=== PATIENT | female | born 1960 | race Caucasian/White ===

== ENCOUNTER 2017-12-06 06:30 | Day surgery (SDC) | payer OTHER ==
[2017-12-03 13:04] LABS: ABSOLUTE EOSINOPHILS # (AUTO) 0.2 10^3/uL (0.0-0.6); ABSOLUTE LYMPHOCYTES (AUTO) 1.7 10^3/uL (0.5-4.7); ABSOLUTE MONOCYTES (AUTO) 0.4 10^3/uL (0.1-1.4); ABSOLUTE NEUT (AUTO) 4.1 10^3/uL (1.7-8.2); BASOPHILS % (AUTO) 0.3 % (0-2); EOSINOPHILS % (AUTO) 2.6 % (0-6); HEMATOCRIT 37.9 % (36.0-47.0); HEMOGLOBIN 12.9 g/dL (12.0-15.5); LYMPHOCYTES % (AUTO) 26.9 % (13-45); MEAN CORPUSCULAR HEMOGLOBIN 31.4 pg (27.0-33.4); MEAN CORPUSCULAR HGB CONC 34.1 g/dL (32.0-36.0); MEAN CORPUSCULAR VOLUME 92 fl (80-97); PLATELET COUNT 242 10^3/uL (150-450); RED BLOOD COUNT 4.12 10^6/uL (3.72-5.28); RED CELL DISTRIBUTION WIDTH 13.5 % (11.5-14.0); SEGMENTED NEUTROPHILS % (AUTO) 64.2 % (42-78); TOTAL CELLS COUNTED % (AUTO) 100 %; WHITE BLOOD COUNT 6.3 10^3/uL (4.0-10.5)
[2017-12-03 13:32] LABS: ANION GAP 8 (5-19); BLOOD UREA NITROGEN 17 mg/dL (7-20); CALCIUM 9.9 mg/dL (8.4-10.2); CARBON DIOXIDE 31 mmol/L (22-30); CHLORIDE 103 mmol/L (98-107); GLUCOSE 82 mg/dL (75-110); POTASSIUM 4.4 mmol/L (3.6-5.0); SODIUM 141.7 mmol/L (137-145)
--- NOTE | 2017-12-03 22:38 | EKG REPORT ---
SEVERITY:- NORMAL ECG - SINUS RHYTHM : Confirmed by: Luiz Huynh 03-Dec-2017 22:37:10
[~2017-12-06 06:30] MED LIST: LACTATED RINGERS 1000 ML IV PRN; LIDOCAINE 0.5% INJ-PF (5 MG/ML) 50 ML SDV SUBCUT PRN; SCOPOLAMINE HYDROBROMIDE 1.5 MG PATCH.TD72 TD PRN
[2017-12-06] MEDS ORDERED: LIDOCAINE 2%/EPINEPHRINE INJ 1.7 ML CARTRIDGE ONE (09:18)
[2017-12-06] MEDS ORDERED: LIDOCAINE 2% INJ-PF (20 MG/ML) 10 ML AMPUL ONE (09:20)
[2017-12-06] MEDS ORDERED: FENTANYL CITRATE INJ/PF 100 MCG/2 ML AMPUL ONE (09:20)
[2017-12-06] MEDS ORDERED: PROPRANOLOL HCL INJ/PF 1 MG/1 ML SDV IV ONE (09:20)
[2017-12-06] MEDS ORDERED: ONDANSETRON HCL INJ/PF 4 MG/2 ML SDV ONE (09:21)
[2017-12-06] MEDS ORDERED: DEXAMETHASONE SOD PHOSPHATE INJ 4 MG/1 ML VIAL ONE (09:21)
[2017-12-06] MEDS ORDERED: MIDAZOLAM 2 MG/2 ML INJ ONE (09:21)
[2017-12-06] MEDS ORDERED: ACETAMINOPHEN 100 ML IV ONE (09:21)
[2017-12-06] MEDS ORDERED: PROPOFOL INJ 200 MG/20 ML VIAL IV ONE (09:22)
[2017-12-06] MEDS ORDERED: CEFAZOLIN INJ 1 GM VIAL ONE (09:53)
[2017-12-06] MEDS ORDERED: PROMETHAZINE HCL INJ 25 MG/1 ML VIAL IV PRN ×3 (11:19→14:35)
[2017-12-06] MEDS ORDERED: MORPHINE SULFATE 10 MG/ML INJ IV PRN (11:19)
[2017-12-06] MEDS ORDERED: DIPHENHYDRAMINE HCL 50 MG/ML VIAL IV PRN (11:19)
[2017-12-06] MEDS ORDERED: OXYCODONE-ACETAMINOPHEN 5-325 MG TABLET PO PRN ×2 (11:19)
[2017-12-06] MEDS ORDERED: FENTANYL CITRATE INJ/PF 100 MCG/2 ML AMPUL IV PRN ×3 (11:19)
[2017-12-06] MEDS ORDERED: MEPERIDINE HCL/PF INJ 25 MG/1 ML DISP.SYRIN IV PRN (11:19)
[2017-12-06] MEDS ORDERED: RINGERS SOLUTION,LACTATED 1,000 ML IV PRN (14:35)
[2017-12-06] MEDS ORDERED: HYDROCODONE/ACETAMINOPHEN 5-325 MG TABLET PO PRN (14:36)
[2017-12-06] MEDS ORDERED: ONDANSETRON 4 MG TAB.RAPDIS PO PRN (14:36)
[2017-12-06] MEDS: ONDANSETRON HCL INJ/PF 4 MG/2 ML SDV IV PRN (15:15)
[2017-12-07] MEDS: ONDANSETRON HCL INJ/PF 4 MG/2 ML SDV IV PRN ×2 (00:14→10:17)
[2017-12-07] MEDS: HYDROCOD/ACETAMIN 7.5-325 MG/15 ML ORAL SOLN UDCUP PO PRN ×3 (00:14→10:17)
[2017-12-07 13:42] VITALS: BP 114/55
--- NOTE | 2017-12-09 10:00 | OPERATIVE REPORT E ---
Operative Report NAME: MARTIN WASSERMAN : 1960 AGE: 57Y DATE OF SURGERY: 12/06/2017 ROOM: 228 PREOPERATIVE DIAGNOSIS: Multinodular goiter. POSTOPERATIVE DIAGNOSIS: Multinodular goiter. OPERATION: 1. Right thyroid lobectomy with partial isthmusectomy. 2. Intraoperative NIM recurrent laryngeal nerve monitoring. SURGEON: SHAHNAZ CHRIS D.O. ANESTHESIA: General endotracheal tube. ANESTHESIA STAFF: LUIS Saleh. ESTIMATED BLOOD LOSS: 20 mL. FLUIDS: 1700 mL. COMPLICATIONS: None. DRAINS: None. COUNTS: Sponge count verified. Needle count verified. MATERIALS FORWARDED SPECIMEN: Right thyroid lobe with markings suggestive of the superior pole. FINDINGS: 1. Right thyroid lobe with large inferior nodule greater than 4x4 cm. 2. Right superior pole thyroid nodule less than 1x1 cm. 3. Right recurrent laryngeal nerve was identified and preserved with appropriate stimulation noted intraoperatively on the NIM monitor. 4. Right superior parathyroid gland prospect identified and preserved. 5. The inferior parathyroid gland prospect was not clearly visualized and there was no lymphadenopathy noted. INDICATIONS: This is a 57-year-old white female patient who was seen and evaluated in the [facility] office. The patient had been referred for and she voiced concern regarding her multinodular goiter. The patient was with a right inferior thyroid lobe nodule greater than 3 cm in size and a right superior thyroid nodule less than 1 cm in size that on FNAB was classified as a Wheeling category IV nodule. The patient has also experienced compressive symptoms with regard to the enlarged right thyroid nodule. The left lobe is only with colloid cyst changes noted on ultrasound. After extensive discussion with the patient, she only desired to have the right thyroid lobe addressed. Therefore, a right thyroid lobectomy with partial isthmusectomy was discussed with the patient. She was aware that depending on the final pathology results, she may need to return to the main operating room within 1-2 weeks of the primary surgery to have a completion thyroid surgery performed. The procedures and all of their risks and complications were all discussed in detail with the patient. She voices understanding of the described surgical plan, agrees to proceed, and consent was obtained. PROCEDURE: The patient was taken to the main operating room and placed on the operating room table in the supine position. Appropriate monitors were placed. Using mask and IV access, general anesthesia was induced. The patient was next transorally intubated with the NIM monitoring tube. The NIM monitoring system tested adequately before beginning the case. The patient had an incision site marked of the anterior neck with a surgical marking pen, and then this area was then infiltrated with lidocaine with epinephrine or a local anesthetic. The patient was then prepped and draped in a sterile fashion for thyroid surgery. The patient underwent an incision through the previously marked site down through the subcutaneous tissues and platysma. Flaps were elevated in a subplatysmal plane. Strap muscles were divided in the midline and the right thyroid lobe was clearly identified. The right thyroid lobe was mobilized. Hemostasis was provided with bipolar electrocautery. The superior and inferior thyroid pole vessels were isolated and divided/addressed with the Harmonic handpiece. In the process of mobilizing the right thyroid lobe, the strap muscles were divided to allow for delivery of the lobe with enlarged nodule. Strap muscles were divided at the mid thyroid aspect. The recurrent laryngeal nerve on the right was identified as was the right superior parathyroid gland prospect. These structures were preserved. Findings are as noted above. The nodule was released from the area of Sagastume's ligament and brought on to the anterior tracheal wall. The thyroid isthmus was identified. The thyroid nodule had expanded into the area of the isthmus. The Harmonic handpiece was used to divide the isthmus and the right thyroid lobe was passed off for permanent pathology evaluation with a marking suture placed at the superior pole. At this point, the surgical site was thoroughly irrigated with normal saline and suction. Bipolar electrocautery was used to provide adequate hemostasis. At this point, one piece of Surgicel was placed over the area of the parathyroid gland prospect and recurrent laryngeal nerve. Adequate hemostasis was noted. The strap muscles were re-approximated with Vicryl suture where they had been divided laterally. The strap muscles were also re-approximated in the midline with Vicryl suture. The platysma and subcutaneous tissues were re-approximated with Vicryl suture. At this point, Monocryl suture was used to re-approximate the deep subcutaneous and deep dermal tissue layers. The skin margins were re-approximated with a Monocryl continuous running suture placed in the dermal layer. At this point, the patient's skin was cleaned and dried followed by placement of Mastisol and Steri-Strips. The patient was then returned to the Anesthesia staff and was allowed to emerge from general anesthesia. The patient was extubated in the main operating room and was then transported into the postanesthesia recovery unit in stable condition. There were no complications. DICTATING PHYSICIAN: SHAHNAZ CHRIS D.O. [id number] PHY#: [id number] ID: [id number] JOB#: [id number] ACCT: [id number] cc:SHAHNAZ CHRIS D.O. >
== END 2017-12-07 13:50 | disposition home or self-care (01) ==
LOC: OROUT 06:30 → 2S 18:50 → OROUT 12-07 13:50
PROVIDERS: ATTEND Otolaryngology
PROC: 0GBG0ZZ Excision of Left Thyroid Gland Lobe, Open Approach (ICD-10-PCS; 2017-12-06)
PROC: 0GBJ0ZZ Excision of Thyroid Gland Isthmus, Open Approach (ICD-10-PCS; 2017-12-06)
PROC: 0GTH0ZZ Resection of Right Thyroid Gland Lobe, Open Approach (ICD-10-PCS; principal; 2017-12-06 08:30)
DX: E04.2 Nontoxic multinodular goiter (principal); Z79.899 Other long term (current) drug therapy
CPT/HCPCS: 93005; 36415; 85025; 80048; 88307 ×2; 93010; 60225; J2250; J3490 ×2; J0690; J1100; J3010; J2550; J2405 ×2; J2704; J0131; 320; J1800; S0119

== ENCOUNTER → 2017-12-18 | Outpatient (CLI) | payer OTHER ==
--- NOTE | 2017-12-18 16:55 | RADIOLOGY REPORT (SQ) ---
EXAM DESCRIPTION: U/S THYROID/SFT TISS HD NECK COMPLETED DATE/TIME: 12/18/2017 4:38 pm REASON FOR STUDY: E04.2 NONTOXIC MULTINODULAR GOITER E04.2 NONTOXIC MULTINODULAR GOITER COMPARISON: None. TECHNIQUE: Dynamic and static rowan-scale images acquired of the thyroid gland. Selected additional c olor/power Doppler images recorded. All images stored to PACS. Patient was scanned by both myself as well as the technologist. LIMITATIONS: None. FINDINGS: Patient is post right lobe thyroidectomy. In the right lobe thyroidectomy bed extending i nto the midline, deep to the strap muscles, there is a small septated fluid collection measuring 2 cm craniocaudad x 1.4 cm transverse x 0.8 cm AP. No internal color flow. The left lobe thyroid measures 3.5 x 1.7 x 1.5 cm in size with multiple small colloid cysts. No subcutaneous fluid collection is identified. IMPRESSION: Post right lobe thyroidectomy with small septated fluid collection in the surgical bed m easuring 2 x 1.4 x 0.8 cm in size TECHNICAL DOCUMENTATION: JOB ID: [id number] [id number]- All Rights Reserved Reading location - IP/workstation name: [email or web address]
== END ==
LOC: RAD 15:45
PROVIDERS: ATTEND Otolaryngology
DX: E04.2 Nontoxic multinodular goiter (principal)
CPT/HCPCS: 76536

== ENCOUNTER 2018-06-04 06:19 | Observation (INO) | payer OTHER ==
[2018-06-02 12:50] LABS: HEMATOCRIT 36.7 % (36.0-47.0); HEMOGLOBIN 12.5 g/dL (12.0-15.5); MEAN CORPUSCULAR HEMOGLOBIN 31.6 pg (27.0-33.4); MEAN CORPUSCULAR HGB CONC 34.2 g/dL (32.0-36.0); MEAN CORPUSCULAR VOLUME 93 fl (80-97); PLATELET COUNT 244 10^3/uL (150-450); RED BLOOD COUNT 3.97 10^6/uL (3.72-5.28); RED CELL DISTRIBUTION WIDTH 13.8 % (11.5-14.0); WHITE BLOOD COUNT 6.5 10^3/uL (4.0-10.5)
[2018-06-02 13:17] LABS: ANION GAP 8 (5-19); BLOOD UREA NITROGEN 14 mg/dL (7-20); CALCIUM 9.6 mg/dL (8.4-10.2); CARBON DIOXIDE 31 mmol/L (22-30); CHLORIDE 102 mmol/L (98-107); GLUCOSE 73 mg/dL (75-110); POTASSIUM 4.3 mmol/L (3.6-5.0); SODIUM 140.8 mmol/L (137-145)
--- NOTE | 2018-06-02 16:01 | EKG REPORT ---
SEVERITY:- BORDERLINE ECG - SINUS RHYTHM LVH BY VOLTAGE : Confirmed by: Luiz Huynh 02-Jun-2018 15:59:53
[~2018-06-04 06:19] MED LIST changes: +SCOPOLAMINE HYDROBROMIDE 1.5 MG PATCH.TD72 ONE
[2018-06-04] MEDS ORDERED: LIDOCAINE 2%/EPINEPHRINE INJ 1.7 ML CARTRIDGE ONE (07:16)
[2018-06-04] MEDS ORDERED: LIDOCAINE 2% INJ-PF (20 MG/ML) 10 ML AMPUL ONE (07:22)
[2018-06-04] MEDS ORDERED: FENTANYL CITRATE INJ/PF 100 MCG/2 ML AMPUL ONE (07:22)
[2018-06-04] MEDS ORDERED: MIDAZOLAM 2 MG/2 ML INJ ONE (07:22)
[2018-06-04] MEDS ORDERED: PROMETHAZINE HCL INJ 25 MG/1 ML VIAL ONE (07:22)
[2018-06-04] MEDS ORDERED: PROPOFOL INJ 200 MG/20 ML VIAL IV ONE (07:23)
[2018-06-04] MEDS ORDERED: HYDROMORPHONE HCL INJ/PF 2 MG/ML AMPULE ONE (07:23)
[2018-06-04] MEDS ORDERED: ACETAMINOPHEN 1,000 MG/100 ML RTUPB IV ONE (07:23)
[2018-06-04] MEDS ORDERED: ONDANSETRON HCL INJ/PF 4 MG/2 ML SDV ONE ×2 (07:42→13:56)
[2018-06-04] MEDS ORDERED: CEFAZOLIN INJ 1 GM VIAL ONE (09:26)
[2018-06-04] MEDS ORDERED: FENTANYL CITRATE INJ/PF 100 MCG/2 ML AMPUL IV PRN ×3 (10:11)
[2018-06-04] MEDS ORDERED: MEPERIDINE HCL/PF INJ 25 MG/1 ML DISP.SYRIN IV PRN (10:11)
[2018-06-04] MEDS ORDERED: MORPHINE SULFATE 10 MG/ML INJ IV PRN ×2 (10:11→12:54)
[2018-06-04] MEDS ORDERED: PROMETHAZINE HCL INJ 25 MG/1 ML VIAL IV PRN ×3 (10:11→12:54)
[2018-06-04] MEDS ORDERED: DIPHENHYDRAMINE HCL 50 MG/ML VIAL IV PRN (10:11)
[2018-06-04] MEDS ORDERED: DEXAMETHASONE SOD PHOSPHATE INJ 4 MG/1 ML VIAL ONE (13:56)
[2018-06-04] MEDS ORDERED: SUCCINYLCHOLINE CHLORIDE INJ 200 MG/10 ML VIAL ONE (13:56)
[2018-06-04] MEDS ORDERED: ROCURONIUM BROMIDE INJ 50 MG/5 ML VIAL IV ONE (13:56)
[2018-06-04] MEDS: ONDANSETRON HCL INJ/PF 4 MG/2 ML SDV IV PRN (14:24)
[2018-06-04] MEDS: HYDROCODONE/ACETAMINOPHEN 5-325 MG TABLET PO PRN ×2 (17:25→22:04)
[2018-06-04 17:39] LABS: ALBUMIN 3.9 g/dL (3.5-5.0); CALCIUM 9.3 mg/dL (8.4-10.2); PHOSPHORUS 4.4 mg/dL (2.5-4.5)
[2018-06-04] MEDS: RINGERS SOLUTION,LACTATED 1,000 ML IV PRN (20:06)
[2018-06-05] MEDS: RINGERS SOLUTION,LACTATED 1,000 ML IV PRN ×2 (04:30→13:00)
[2018-06-05] MEDS ORDERED: LEVOTHYROXINE SODIUM 0.05 MG TABLET PO SCH (06:00)
[2018-06-05] MEDS ORDERED: PROMETHAZINE HCL INJ 25 MG/1 ML VIAL IV PRN (07:30)
[2018-06-05 07:57] LABS: ALBUMIN 3.3 g/dL (3.5-5.0); CALCIUM 9.1 mg/dL (8.4-10.2); PHOSPHORUS 4.2 mg/dL (2.5-4.5)
[2018-06-05] MEDS: HYDROCODONE/ACETAMINOPHEN 5-325 MG TABLET PO PRN (08:10)
[2018-06-05] MEDS: ONDANSETRON HCL INJ/PF 4 MG/2 ML SDV IV PRN (08:10)
--- NOTE | 2018-06-05 08:21 | OPERATIVE REPORT E ---
Operative Report NAME: MARTIN WASSERMAN : 1960 AGE: 57Y DATE OF SURGERY: 06/04/2018 ROOM: 532 PREOPERATIVE DIAGNOSES: 1. History of papillary thyroid cancer. 2. Left thyroid lobe with multiple nodules. POSTOPERATIVE DIAGNOSES: 1. History of papillary thyroid cancer. 2. Left thyroid lobe with multiple nodules. OPERATIONS PERFORMED: 1. Completion left thyroid lobectomy with remaining isthmusectomy. 2. Noninvasive nerve monitoring intraoperatively (NIM). PRIMARY SURGEON: SHAHNAZ CHRIS D.O. ASSISTING SURGEON: EMILY NICHOLAS M.D. ANESTHESIA: General endotracheal tube. ANESTHESIA STAFF: Miriam CALDERON ESTIMATED BLOOD LOSS: 20 mL. FLUIDS: 1200 mL. URINE OUTPUT: 300 mL. COMPLICATIONS: None. DRAINS: None. COUNTS: Sponge count verified. Needle count verified. MATERIALS FORWARDED SPECIMEN: Left thyroid lobe with multiple nodules palpated with remaining thyroid isthmus tissue for permanent pathology evaluation. FINDINGS: 1. Left thyroid lobe with multiple nodules palpated and remaining isthmus tissue overlying the anterior tracheal aspect. 2. Extensive scar tissue throughout the thyroid distribution and surrounding the trachea and strap muscles. 3. Left recurrent laryngeal nerve was identified and preserved and stimulated appropriately at 1 and 1.5 milliamp during and at the end of the case. 4. Left parathyroid gland prospect was identified and preserved. INDICATIONS: This is a 57-year-old white female who has been seen, evaluated, and followed in the [facility] office. The patient is with history of a multinodular goiter with most dominant nodule originally on the right greater than 3 cm. The patient underwent a right thyroid lobectomy. On final pathology, the patient was noted through an extensive pathology investigation to have a papillary thyroid carcinoma size of 11 mm. The patient followed up with both ENT and Endocrinology with repeat thyroid ultrasound and FNA of the most dominant left thyroid nodule at 6.6 mm. This came back Clarendon category II. After extensive discussion with the patient, recommendation and plan was to proceed with a completion left thyroid lobectomy and isthmusectomy, which the patient voiced an understanding of and desires to proceed with. The procedure and all of the risks and complications were all discussed in detail with the patient. She voiced an understanding of the described surgical plan, agreed to proceed, and consent was obtained. DESCRIPTION OF PROCEDURE: The patient was taken to the main operating room and placed on the operating room table in the supine position. Appropriate monitors placed. Using mask and IV access, general anesthesia was induced. The patient was next transorally intubated with an NIM endotracheal tube. The NIM monitoring system was set up and attested appropriately before beginning the case. At this point, there was a planned incision site marked at the anterior neck followed by infiltration with local anesthetic with epinephrine. The patient was then prepped and draped in the usual fashion for thyroid surgery. The skin was sharply incised down to the level of the subcutaneous and platysmal tissues. Skin flaps were elevated in a subplatysmal plane. The extensive scar tissue and strap muscle distribution was identified and divided in the midline. Careful dissection was carried out to identify the anterior tracheal wall and remaining thyroid isthmus tissue and left thyroid lobe. The left strap muscles were mobilized laterally to expose the left thyroid lobe. The left lobe was mobilized and prominent vasculature was divided using the Harmonic handpiece. Bipolar electrocautery was utilized throughout the case. The lobe and remaining isthmus tissue was mobilized and Sagastume's ligament was released and the specimen was removed. There was also remaining isthmus tissue and scar tissue that was removed that was overlying the anterior tracheal wall. At this point, the wound bed was thoroughly irrigated. There was a parathyroid gland prospect and the left recurrent laryngeal nerve were identified and preserved during the case. The left recurrent laryngeal nerve stimulated appropriately at 1.5 and 1 milliamp during and at the end of the case. Bipolar electrocautery was used to provide adequate hemostasis. There were 2 pieces of Surgicel, approximately 2 x 2 cm each, that were placed into the wound bed overlying the area of the parathyroid gland and recurrent laryngeal nerve. At this point, the strap muscles were reapproximated in the midline using Vicryl suture. Deeper subcutaneous and platysmal layers were reapproximated with Vicryl suture. Next, the deep dermal tissue was reapproximated with 5-0 Monocryl suture. A final skin layer of reapproximation was performed using a Monocryl deep dermal continuous suture. The skin was then cleaned and dried followed by placement of Mastisol, Steri-Strips, and a Fluffs pressure dressing. The patient was next returned to the anesthesia staff and was allowed to emerge from general anesthesia. The patient was extubated in the main operating room and was then transported to the post-anesthesia recovery unit in stable condition. There were no complications. DICTATING PHYSICIAN: SHAHNAZ CHRIS D.O. [id number] PHY#: [id number] ID: [id number] JOB#: [id number] ACCT: [id number] cc:SHAHNAZ CHRIS D.O. > MTDD
[2018-06-05] MEDS ORDERED: HYDROCODONE/ACETAMINOPHEN 5-325 MG TABLET PO PRN (08:35)
[2018-06-05] MEDS ORDERED: VITAMIN E (DL, ACETATE) 400 UNIT CAPSULE PO SCH (10:00)
[2018-06-05] MEDS ORDERED: (PENDING PHARMACY ID) (Omega-3 Fatty Acids/Fish Oil [Fish Oil 1,000 Mg Capsule] 1 EACH) PO SCH (10:00)
[2018-06-05] MEDS ORDERED: IRON CARBONYL PO SCH (10:00)
[2018-06-05] MEDS ORDERED: (PENDING PHARMACY ID) (Vitamin E [Vitamin E] 1,000 UNIT) PO SCH (10:00)
[2018-06-05] MEDS ORDERED: SELENIUM PO SCH (10:00)
[2018-06-05] MEDS ORDERED: ZINC 15 MG PO SCH (10:00)
[2018-06-05] MEDS ORDERED: ASCORBIC ACID PO SCH (10:00)
[2018-06-05] MEDS ORDERED: MULTIVITAMIN TABLET PO SCH (10:00)
[2018-06-05] MEDS: OMEGA-3 ACID ETHYL ESTERS 1 GM CAPSULE PO SCH ×2 (10:15→10:35)
[2018-06-05 12:27] VITALS: BP 89/56
[2018-06-05] MEDS ORDERED: ONDANSETRON HCL INJ/PF 4 MG/2 ML SDV IV PRN (14:30)
== END 2018-06-05 15:32 | disposition home or self-care (01) ==
LOC: OROUT 06:19 → EDSTATUS 08:30 → 5 12:54 → OROUT 16:06
PROVIDERS: ADMIT Otolaryngology; ATTEND Otolaryngology
PROC: 0GTG0ZZ Resection of Left Thyroid Gland Lobe, Open Approach (ICD-10-PCS; 2018-06-04)
PROC: 0GTJ0ZZ Resection of Thyroid Gland Isthmus, Open Approach (ICD-10-PCS; principal; 2018-06-04 08:30)
DX: E04.2 Nontoxic multinodular goiter (principal); Z85.850 Personal history of malignant neoplasm of thyroid; Z98.890 Other specified postprocedural states; Z79.899 Other long term (current) drug therapy
CPT/HCPCS: 60220; 93005; 36415 ×3; 82040 ×2; 82310 ×2; 83735 ×2; 84100 ×2; 85027; 80048; 83970; 88305 ×2; 88307 ×2; 88331 ×2; 93010; J2250; J3490 ×3; J0690; J1100; J1170; J2550; J0330; J2405 ×2; J7120; J2704; J0131; 320; J3010

== ENCOUNTER → 2020-08-19 | Outpatient (CLI) | payer OTHER ==
[2020-08-19 11:19] VITALS: BP 132/80
--- NOTE | 2020-08-19 11:19 | ER RDC ASSESSMENT REPORT ---
Intake - In the Last 14 days Have you traveled outside [place]?: No Have you been in close contact with someone CONFIRMED: Yes Worked in Healthcare?: No - Symptoms Subjective Fever([place] feverish): No Chills: No Muscule Aches: No Runny Nose: No Sore Throat: No Cough (New or worsening chronic cough): No Shortness of breath: No Nausea or Vomiting: No Headache: No Abdominal Pain: No Diarrhea(3 or more loose stools in last 24 hours): No - Do you have any of the following Chronic lung disease: Asthma or emphysema or COPD: No Cystic Fibrosis: No Diabetes: No High Blood Pressure: No Cardiovascular Disease: No Chronic Kidney Disease: No Chronic Liver Disease: No Chronic blood disorder like Sickle Cell Disease: No Weak immune system due to disease or medication: No Neurologic condition that limits movement: No Developmental delay - Moderate to Severe: No Recent (within past 2 weeks) or current : No Morbid Obesity (>100 pounds over ideal weight): No Obesity Comment: Height 5 feet 6 inches weight 190 pounds Other Comment: Is a history of thyroid cancer thyroid was removed. - Objective Temperature: 98.2 F Pulse Rate: 65 Respiratory Rate: 18 Blood Pressure: 132/80 O2 Sat by Pulse Oximetry: 98 Objective: Given above, testing performed: If Testing Performed: Test Specimen Type Sent to General - General Information source: Patient Notes: Patient here at [facility] for Covid testing patient reports [id number] was seen in the ER and has been tested for Covid and has tested positive patient has had exposure to her [id number] patient denies any symptoms at this point. Patient's PCP is Dr. Richardson at [facility]. Patient will follow up with him later. - Related Data Allergies/Adverse Reactions: No Known Allergies Allergy (Verified 06/04/18 06:41) Past Medical History - General Information source: Patient - Social History Smoking Status: Never Smoker - Past Medical History Cardiac Medical History: Denies: Hx Atrial Fibrillation, Hx Congestive Heart Failure, Hx Coronary Artery Disease, Hx Heart Attack, Hx Hypercholesterolemia, Hx Hypertension, Hx Peripheral Vascular Disease, Hx Heart Murmur Pulmonary Medical History: Denies: Hx Asthma, Hx Bronchitis, Hx COPD, Hx Pneumonia Neurological Medical History: Denies: Hx Cerebrovascular Accident, Hx Seizures Endocrine Medical History: Reports: Hx Hypothyroidism - D/T RIGHT THYROID LOBECTOMY. Denies: Hx Graves' Disease, Hx Hyperthyroidism Musculoskeletal Medical History: Reports Hx Arthritis - SPINAL STENONSIS, Denies Hx Fibromyalgia, Denies Hx Muscular Dystrophy, Denies Hx Systemic Lupus Erythematosus Traumatic Medical History: Denies: Hx Fractures Past Surgical History: Reports: Hx Hysterectomy. Denies: Hx Appendectomy, Hx Bowel Surgery, Hx Section, Hx Cholecystectomy, Hx Coronary Artery Bypass Graft, Hx Gastric Bypass Surgery, Hx Herniorrhaphy, Hx Mastectomy, Hx Pacemaker, Hx Tonsillectomy, Hx Tubal Ligation Physical Exam - General General appearance: Appears well, Alert In distress: None Notes: PHYSICAL EXAMINATION: GENERAL: Well-appearing and in no acute distress. HEAD: Atraumatic, normocephalic. EYES: sclera anicteric, conjunctiva are normal. ENT: nares patent. Moist mucous membranes. NECK: Normal range of motion, supple without lymphadenopathy LUNGS: CTAB and equal. No wheezes rales or rhonchi. Respirations even and unlabored lung sounds clear. HEART: Regular rate and rhythm without murmurs ABDOMEN: Soft, nontender, normal bowel sounds, no guarding. EXTREMITIES: Normal range of motion, no pitting edema. No cyanosis. NEUROLOGICAL: Cranial nerves grossly intact. Normal speech. Normal gait. PSYCH: Normal mood, normal affect. SKIN: Warm, Dry, normal turgor, no rashes or lesions noted Diagnostic Results Laboratory Results: pending Covid testing results. Patient provided instructions regarding Covid to include: As a person under investigation for Covid 19, the [place] department of Health and Human Services, division of public health advises you to adhere to the following guidance until your test results are reported to you. If your test result is positive, you will receive additional information from your provider and your local health department at that time. Remain at home until you are cleared by the health provider or public health authorities. Keep a log of visitors to your home, notify any visitors to your home of your isolation status. If you plan to move to a new address or leave the county, notify the local health department in your County. Call your doctor or seek care if you have an urgent medical need. Before seeking medical care, call ahead to get instructions from the provider before arriving at the medical office clinic or hospital. Notify them that you are being tested for the virus that causes Covid 19 so that arrangements can be made, as necessary, to prevent transmission to others in the healthcare setting. Next, notify the local health department in your county. If a medical emergency arises and you need to call 911, inform the first responders that you are being tested for the virus that causes Covid 19. Next, notify the local health department in your county. Patient Education/Counseling Counseling/Education: Patient presents with upper respiratory symptoms worrisome for possible Covid 19. Patient does not have emergency worring symptoms such as difficulty breathing, shortness of breath, chest pain, pressure, confusion or cyanosis. Patient appears suitable for discharge. Patient instructed to follow-up with RABIA Richardson at [facility] patient's vital signs are stable and patient is nontoxic in appearance. Good return precautions have been discussed with patient, patient verbalized understanding and is agreeable with discharge plan of care at this time. RDC Discharge - Discharge Clinical Impression: Encounter for screening laboratory testing for COVID-19 virus in asymptomatic patient Condition: Stable Disposition: Home; Selfcare
== END ==
LOC: RDC 10:27
PROVIDERS: ATTEND Nurse Practitioner Family
DX: Z20.828 Contact with and (suspected) exposure to other viral communicable diseases (principal); Z85.850 Personal history of malignant neoplasm of thyroid; E03.9 Hypothyroidism, unspecified; M48.00 Spinal stenosis, site unspecified; M13.80 Other specified arthritis, unspecified site
CPT/HCPCS: 87635; C9803; 99201; 99211

== ENCOUNTER → 2020-08-24 | Outpatient (CLI) | payer OTHER ==
--- NOTE | 2020-08-24 15:03 | ER RDC ASSESSMENT REPORT ---
Intake - In the Last 14 days Have you traveled outside [place]?: No Have you been in close contact with someone CONFIRMED: Yes Worked in Healthcare?: No - Symptoms Subjective Fever([place] feverish): No Chills: No Muscule Aches: No Runny Nose: No Sore Throat: No Cough (New or worsening chronic cough): No Shortness of breath: No Nausea or Vomiting: No Headache: No Abdominal Pain: No Diarrhea(3 or more loose stools in last 24 hours): No - Do you have any of the following Chronic lung disease: Asthma or emphysema or COPD: Yes Cystic Fibrosis: No Diabetes: No High Blood Pressure: No Cardiovascular Disease: No Chronic Kidney Disease: No Chronic Liver Disease: No Chronic blood disorder like Sickle Cell Disease: No Weak immune system due to disease or medication: No Neurologic condition that limits movement: No Developmental delay - Moderate to Severe: No Morbid Obesity (>100 pounds over ideal weight): No - Objective Temperature: 98.0 F Pulse Rate: 59 Respiratory Rate: 17 Blood Pressure: 114/56 O2 Sat by Pulse Oximetry: 100 Objective: Given above, testing performed: covid Disposition: Home; Selfcare General - General Stated Complaint: Asymptomatic, Covid screen Time Seen by Provider: 08/24/20 14:45 Mode of Arrival: Ambulatory Information source: Patient - HPI Notes: Patient presents to clinic for COVID-19 testing after coming in close contact with another COVID 19 positive individual. Patient is asymptomatic. They deny any cough, shortness of breath, fever, chills, muscle aches, rhinorrhea, sore throat, nausea or vomiting, headache, abdominal pain or diarrhea. Patient has no acute medical concerns. - Related Data Allergies/Adverse Reactions: No Known Allergies Allergy (Verified 06/04/18 06:41) Past Medical History - General Information source: Patient - Social History Smoking Status: Never Smoker - Past Medical History Cardiac Medical History: Reports: None Denies: Hx Atrial Fibrillation, Hx Congestive Heart Failure, Hx Coronary Artery Disease, Hx Heart Attack, Hx Hypercholesterolemia, Hx Hypertension, Hx Peripheral Vascular Disease, Hx Heart Murmur Pulmonary Medical History: Reports: Hx Asthma Denies: Hx Bronchitis, Hx COPD, Hx Pneumonia EENT Medical History: Reports: None Neurological Medical History: Reports: None. Denies: Hx Cerebrovascular Accident, Hx Seizures Endocrine Medical History: Reports: Hx Hypothyroidism - D/T RIGHT THYROID LOBECTOMY. Denies: Hx Graves' Disease, Hx Hyperthyroidism Renal/ Medical History: Reports: None Malignancy Medical History: Reports: None GI Medical History: Reports: None Musculoskeletal Medical History: Reports Hx Arthritis - SPINAL STENONSIS, Denies Hx Fibromyalgia, Denies Hx Muscular Dystrophy, Denies Hx Systemic Lupus Erythematosus Skin Medical History: Reports None Psychiatric Medical History: Reports: None Traumatic Medical History: Reports: None. Denies: Hx Fractures Infectious Medical History: Reports: None Past Surgical History: Reports: Hx Hysterectomy. Denies: Hx Appendectomy, Hx Bowel Surgery, Hx Section, Hx Cholecystectomy, Hx Coronary Artery Bypass Graft, Hx Gastric Bypass Surgery, Hx Herniorrhaphy, Hx Mastectomy, Hx Pacemaker, Hx Tonsillectomy, Hx Tubal Ligation Physical Exam - General General appearance: Appears well, Alert In distress: None Notes: PHYSICAL EXAMINATION: GENERAL: Well-appearing and in no acute distress. HEAD: Atraumatic, normocephalic. EYES: sclera anicteric, conjunctiva are normal. ENT: nares patent. Moist mucous membranes. NECK: Normal range of motion, supple without lymphadenopathy. LUNGS: No increased work of breathing. Lung sounds CTAB and equal. No wheezes rales or rhonchi. HEART: Regular rate and rhythm without murmurs. ABDOMEN: Soft, nontender, normal bowel sounds, no guarding. EXTREMITIES: Normal range of motion, no pitting edema. No cyanosis. NEUROLOGICAL: A&O x 3. Normal speech. PSYCH: Normal mood, normal affect. SKIN: Warm, Dry, normal turgor, no rashes or lesions noted Patient Education/Counseling Counseling/Education: Patient presents for COVID 19 testing after close exposure to another person who has tested positive for COVID 19. Patient is asymptomatic at this time. Patient does not have emergency worrying symptoms such as difficulty breathing, shortness of breath, chest pain, pressure, confusion or cyanosis. Patient appears suitable for discharge as vital signs are stable and patient is nontoxic in appearance. Good return precautions have been discussed with patient, patient verbalized understanding and is agreeable with discharge plan of care at this time. Guidance for worsening S/SX: As a person under investigation for Covid 19, the [facility], division of public health advises you to adhere to the following guidance until your test results are reported to you. If your test result is positive, you will receive additional information from your provider and your local health department at that time. Remain at home until you are cleared by the health provider or public health authorities. Keep a log of visitors to your home, notify any visitors to your home of your isolation status. If you plan to move to a new address or leave the county, notify the local health department in your County. Call your doctor or seek care if you have an urgent medical need. Before seeking medical care, call ahead to get instructions from the provider before arriving at the medical office clinic or hospital. Notify them that you are being tested for the virus that causes Covid 19 so that arrangements can be made, as necessary, to prevent transmission to others in the healthcare setting. Next, notify the local health department in your county. If a medical emergency arises and you need to call 911, inform the first respon ders that you are being tested for the virus that causes Covid 19. Next, notify the local health department in your county. RDC Discharge - Discharge Clinical Impression: Encounter for screening laboratory testing for COVID-19 virus in asymptomatic patient Condition: Good Disposition: Home; Selfcare
[2020-08-24 15:24] VITALS: BP 114/56
== END ==
LOC: RDC 14:39
PROVIDERS: ATTEND Registered Nurse
DX: Z20.828 Contact with and (suspected) exposure to other viral communicable diseases (principal); E03.9 Hypothyroidism, unspecified; M48.00 Spinal stenosis, site unspecified; M13.80 Other specified arthritis, unspecified site
CPT/HCPCS: 87635; C9803